=== PATIENT | male | born 1940 | race Caucasian/White ===

== ENCOUNTER 2022-04-09 12:00 | Emergency (ER) | payer MEDICARE, OTHER ==
[~2022-04-09] VITALS: Ht 185.4 cm; Wt 93.9 kg
[2022-04-09] MEDS ORDERED: EC-NAPROXEN375 MG PO (19:25)
[2022-04-09] MEDS ORDERED: HYDROCODON-ACE1 EAC4 PO (19:46)
[2022-04-09] MEDS ORDERED: CEPHALEXIN500 MG PO (19:52)
== END 2022-04-09 20:09 | disposition home or self-care (01) ==
LOC: ER1 12:00
DX: S02.611A Fracture of condylar process of right mandible, initial encounter for closed fracture (principal); S61.421A Laceration with foreign body of right hand, initial encounter; S60.512A Abrasion of left hand, initial encounter; R07.81 Pleurodynia; I73.9 Peripheral vascular disease, unspecified; I11.9 Hypertensive heart disease without heart failure; R40.2410 Glasgow coma scale score 13-15, unspecified time; Z87.891 Personal history of nicotine dependence; W01.0XXA Fall on same level from slipping, tripping and stumbling without subsequent striking against object, initial encounter
CPT/HCPCS: 70450; 70486; 71101; 72125; 73130; 96374; 96375; 96376; 99284; J2270; J2405